=== PATIENT | male | born 2000 | race Caucasian/White ===

== ENCOUNTER 2023-01-21 11:46 | Emergency (ER) | payer MEDICAID ==
[~2023-01-21] VITALS: Ht 175.3 cm; Wt 88.6 kg
[2023-01-21 11:47] VITALS: BP 129/79; PULSE 69; RESP 18; TEMP 98.3; O2SAT 98
[2023-01-21] MEDS ORDERED: IBUPROFEN 800 MG TAB PO ONE (12:05)
[2023-01-21] MEDS ORDERED: NAPR-54 PO (12:43)
[2023-01-21] MEDS ORDERED: IBUPROFEN 800 MG TAB ONE (14:52)
== END 2023-01-21 15:03 | disposition home or self-care (01) ==
LOC: MED 11:46
DX: M25.562 Pain in left knee (principal); R03.0 Elevated blood-pressure reading, without diagnosis of hypertension; Z79.1 Long term (current) use of non-steroidal anti-inflammatories (NSAID)
CPT/HCPCS: 73562; 99283